=== PATIENT | female | born 2000 | race African-American/Black ===

== ENCOUNTER 2021-10-27 15:28 | Emergency (ER) | payer SELFPAY ==
[2021-10-27] MEDS: Ondansetron 4 MG/2 ML SDV IVPUSH ONE (16:32)
[2021-10-27] MEDS: Sodium Chloride 0.9% 1,000 ML IV ONE (16:32)
[2021-10-27] MEDS: Ketorolac 30 MG/ML SDV IVPUSH ONE (16:36)
[2021-10-27 16:42] LABS: ANION GAP 10.6 mmol/L (5-15); CHLORIDE,CL 105 mmol/L (98-107); SODIUM,NA 140 mmol/L (136-145)
== END 2021-10-27 19:00 | disposition home or self-care (01) ==
LOC: KA.ED 15:28 → EDBD 15:28 → KA.ED 19:00
DX: E86.0 Dehydration (principal); R11.2 Nausea with vomiting, unspecified; R19.7 Diarrhea, unspecified; Z88.7 Allergy status to serum and vaccine
CPT/HCPCS: 36415; 80053; 81001; 81025; 83690; 85025; 96374; 96375; 99284; 99284-25; J1885; J2405; J7030

== ENCOUNTER 2022-04-30 09:33 | Emergency (ER) | payer MEDICARE, MEDICAID | END 2022-04-30 10:43 | disposition left against medical advice (07) | LOC: KA.ED 09:33 | DX: M79.10 Myalgia, unspecified site (principal); F32.9 Major depressive disorder, single episode, unspecified; F41.9 Anxiety disorder, unspecified; K21.9 Gastro-esophageal reflux disease without esophagitis; D64.9 Anemia, unspecified; G70.00 Myasthenia gravis without (acute) exacerbation; J45.909 Unspecified asthma, uncomplicated; Z88.7 Allergy status to serum and vaccine; Z79.84 Long term (current) use of oral hypoglycemic drugs; Z79.899 Other long term (current) drug therapy | CPT/HCPCS: 99284 ==

== ENCOUNTER 2022-05-05 19:25 | Emergency (ER) | payer MEDICARE, MEDICAID ==
[2022-05-05] MEDS ORDERED: Sodium Chloride 0.9% 10 ML Syringe FLUSH PRN (19:40)
[2022-05-05] MEDS ORDERED: Sodium Chloride 0.9% 1,000 ML IV ONE (19:55)
[2022-05-05] MEDS ORDERED: Sodium Chloride 0.9% 1,000 ML ONE (19:57)
[2022-05-05 20:22] LABS: ANION GAP 12.1 mmol/L (5-15); CHLORIDE,CL 102 mmol/L (98-107); SODIUM,NA 138 mmol/L (136-145)
[2022-05-05 20:23] LABS: ESTIMATED GFR 127 mL/min (>=60)
[2022-05-05] MEDS ORDERED: Ibuprofen 600 MG Tab PO ONE (22:26)
== END 2022-05-05 22:55 ==
LOC: KA.ED 19:25
DX: R53.1 Weakness (principal); G70.00 Myasthenia gravis without (acute) exacerbation; Z88.8 Allergy status to other drugs, medicaments and biological substances
CPT/HCPCS: 36415; 80053; 83605; 84484; 85025; 86140; 93005; 93010; 96360; 99284; 99285-25; A9270-GY; J3490; J7030

== ENCOUNTER 2024-04-16 12:58 | Emergency (ER) | payer MEDICARE, MEDICAID ==
[2024-04-16 13:28] LABS: BASOPHILS ABSOLUTE AUTO 0.04 10^3/uL (0.00-0.10); BASOPHILS PERCENT AUTO 0.4 % (0.0-1.0); EOSINOPHILS PERCENT AUTO 2.2 % (1.0-3.0); HEMATOCRIT 38.8 % (37.0-47.0); HEMOGLOBIN 12.2 g/dL (12.0-16.0); LYMPHOCYTES ABSOLUTE AUTO 2.34 10^3/uL (1.00-4.00); LYMPHOCYTES PERCENT AUTO 26.1 % (20.0-40.0); MEAN CORPUSCULAR HEMOGLOBIN 29.2 pg (27.0-31.0); MEAN CORPUSCULAR HGB CONC 31.4 g/dL (32.0-36.0); MEAN CORPUSCULAR VOLUME 92.8 fL (82.0-92.0); MEAN PLATELET VOLUME 10.8 fL (7.4-10.4); MONOCYTES ABSOLUTE AUTO 0.56 10^3/uL (0.10-0.80); MONOCYTES PERCENT AUTO 6.2 % (2.0-8.0); NEUTROPHILS ABSOLUTE AUTO 5.84 10^3/uL (2.50-7.00); NEUTROPHILS PERCENT AUTO 65.1 % (50.0-70.0); PLATELET COUNT,PLT 211 10^3/uL (150-400); RED BLOOD CELL COUNT 4.18 10^6/uL (3.80-5.50); RED CELL DISTRIBUTION WIDTH 12.1 % (11.5-14.5); WHITE BLOOD CELL COUNT,WBC 8.98 10^3/uL (5.00-10.00)
[2024-04-16 13:44] LABS: ALBUMIN 3.81 g/dL (3.40-5.00); ANION GAP 8.8 mmol/L (5-15); BILIRUBIN TOTAL 0.3 mg/dL (0.2-1.0); CALCIUM 8.8 mg/dL (8.7-10.3); CREATININE 0.73 mg/dL (0.51-1.17); EST CRCL DRUG DOSING (CG) 89.67 mL/min; POTASSIUM,K 3.8 mmol/L (3.5-5.1)
[2024-04-16 13:44] LABS: APPEARANCE,URINE CLEAR (CLEAR); BILIRUBIN,URINE NEGATIVE (NEGATIVE); COLOR,URINE LIGHT YELLOW (YELLOW); GLUCOSE,URINE NEGATIVE (NEGATIVE); KETONES,URINE NEGATIVE (NEGATIVE); LEUKOCYTE ESTERASE,URINE NEGATIVE (NEGATIVE); NITRITE,URINE NEGATIVE (NEGATIVE); OCCULT BLOOD,URINE TRACE-INTACT (NEGATIVE); PROTEIN,URINE NEGATIVE (NEGATIVE); UROBILINOGEN,URINE 0.2 E.U./dL (0.2-1.0)
[2024-04-16 13:52] LABS: BACTERIA,URINE RARE /HPF (NONE TO FEW); EPITHELIAL CELLS,URINE FEW /LPF; RBC,URINE 0-5 /HPF (0-5); WBC,URINE 0-5 /HPF (0-5)
[2024-04-16] MEDS: Omeprazole 20 MG Cap.CR PO ONE (14:29)
== END 2024-04-16 15:02 | disposition home or self-care (01) ==
LOC: KA.ED 12:58
DX: K21.9 Gastro-esophageal reflux disease without esophagitis (principal); F32.A Depression, unspecified; G70.00 Myasthenia gravis without (acute) exacerbation; Z91.199 Patient's noncompliance with other medical treatment and regimen due to unspecified reason; Z79.899 Other long term (current) drug therapy; Z88.7 Allergy status to serum and vaccine
CPT/HCPCS: 36415; 80053; 81001; 85025; 87651; 99284; A9270

== ENCOUNTER 2025-01-15 01:50 | Emergency (ER) | payer MEDICARE, MEDICAID ==
[2025-01-15] MEDS: diphenhydrAMINE 50 MG/ML SDV IVPUSH ONE ×2 (02:15→04:08)
[2025-01-15] MEDS: diphenhydrAMINE 50 MG/ML SDV ONE (02:27)
[2025-01-15] MEDS: Ketorolac 30 MG/ML SDV IVPUSH ONE (04:05)
[2025-01-15 04:07] LABS: BASOPHILS ABSOLUTE AUTO 0.00 10^3/uL (0.00-0.10); BASOPHILS PERCENT AUTO 0.0 % (0.0-1.0); EOSINOPHILS ABSOLUTE AUTO 0.02 10^3/uL (0.10-0.30); EOSINOPHILS PERCENT AUTO 0.2 % (1.0-3.0); IMMATURE GRAN ABSOLUTE AUTO 0.02 10^3/uL (0.00-0.04); IMMATURE GRAN PERCENT AUTO 0.2 % (0.0-0.4); LYMPHOCYTES ABSOLUTE AUTO 1.62 10^3/uL (1.00-4.00); LYMPHOCYTES PERCENT AUTO 16.2 % (20.0-40.0); MEAN PLATELET VOLUME 10.8 fL (7.4-10.4); MONOCYTES ABSOLUTE AUTO 0.38 10^3/uL (0.10-0.80); MONOCYTES PERCENT AUTO 3.8 % (2.0-8.0); NEUTROPHILS ABSOLUTE AUTO 7.93 10^3/uL (2.50-7.00); NEUTROPHILS PERCENT AUTO 79.6 % (50.0-70.0); PLATELET COUNT,PLT 187 10^3/uL (150-400); RED BLOOD CELL COUNT 4.45 10^6/uL (3.80-5.50); RED CELL DISTRIBUTION WIDTH 11.9 % (11.5-14.5); WHITE BLOOD CELL COUNT,WBC 9.97 10^3/uL (5.00-10.00)
[2025-01-15 04:23] LABS: ALANINE AMINOTRANSFERASE,ALT 22.0 U/L (14-63); ASPARTATE AMNIOTRANSFERASE,AST 22.0 U/L (15-37); BILIRUBIN TOTAL 0.4 mg/dL (0.2-1.0); BLOOD UREA NITROGEN,BUN 10.0 mg/dL (7-18); CARBON DIOXIDE,CO2 23.5 mmol/L (21.0-32.0); CHLORIDE,CL 106.0 mmol/L (98-107); CREATININE 0.71 mg/dL (0.51-1.17); EST CRCL DRUG DOSING (CG) 91.4 mL/min; ESTIMATED GFR 121.0 mL/min (>=60); GLUCOSE RANDOM 108.0 mg/dL (70-140); POTASSIUM,K 3.6 mmol/L (3.5-5.1); PROTEIN TOTAL,TP 6.7 g/dL (6.4-8.2); SODIUM,NA 140.0 mmol/L (136-145)
[2025-01-15] MEDS: methylPREDNISolone Sodium Succinate 125 MG/2 ML SDV IVPUSH ONE (05:32)
== END 2025-01-15 05:50 ==
LOC: KA.ED 01:50
DX: G70.01 Myasthenia gravis with (acute) exacerbation (principal); T78.40XA Allergy, unspecified, initial encounter; I10 Essential (primary) hypertension; K21.9 Gastro-esophageal reflux disease without esophagitis; Z88.8 Allergy status to other drugs, medicaments and biological substances; Z79.899 Other long term (current) drug therapy
CPT/HCPCS: 36415; 80053; 85025; 96361; 96374; 96375; 96376; 99284; 99285-25; J1200; J1885; J2919; J7030